=== PATIENT | male | born 1975 | race Caucasian/White ===

== ENCOUNTER 2016-10-19 12:25 | Emergency (ER) | payer OTHER ==
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
[2016-10-19 16:20] LABS: Bilirubin,Urine NEG (Negative); Blood,Urine NEG (Negative); Ketones,Urine NEG (Negative); Leukocyte Esterase,Urine NEG (Negative); Mucus,Urine FEW /HPF; Nitrite,Urine NEG (Negative); Protein,Urine <15 mg/dL mg/dL (Negative); Urobilinogen,Urine < 2.0 mg/dL (<2.0); WBC,Urine < 1.0 /HPF (0.0-6.0)
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
[2016-10-19] MEDS ORDERED: ZOFRAN ODT PO ONE (16:48)
[2016-10-19] MEDS ORDERED: NORCO 5/325 PO ONE (16:48)
[2016-10-19 17:34] VITALS: BP 124/79
== END 2016-10-19 17:32 | disposition home or self-care (01) ==
LOC: ED 12:25
DX: R51 Headache (principal); M54.5 Low back pain; F17.200 Nicotine dependence, unspecified, uncomplicated; V89.2XXA Person injured in unspecified motor-vehicle accident, traffic, initial encounter; W22.11XA Striking against or struck by driver side automobile airbag, initial encounter; Y93.89 Activity, other specified; Y99.9 Unspecified external cause status; Y92.410 Unspecified street and highway as the place of occurrence of the external cause
CPT/HCPCS: 70450; 72100; 72125; 81001; Q0162